=== PATIENT | male | born 1955 | race Caucasian/White ===

== ENCOUNTER 2018-11-26 08:19 | Day surgery (SDC) | payer MEDICARE, BC ==
--- NOTE | 2018-11-26 08:56 | EDM.PDOC ---
ED HPI GENERAL MEDICAL PROBLEM - General Chief Complaint: General Stated Complaint: HERNIA Time Seen by Provider: 11/26/18 08:40 Source of Information: Reports: Patient History Limitations: Reports: No Limitations - History of Present Illness INITIAL COMMENTS - FREE TEXT/NARRATIVE: 63-year-old male with a chronic asymptomatic umbilical hernia has become incarcerated and painful over the past 12 hours. He is otherwise healthy, his blood pressure is high currently but he says it tends to get high when he is upset during pain. 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 No other complaints or issues. Onset: Sudden Duration: Hour(s): (12 hours ago) Location: Reports: Abdomen Worsens with: Reports: Other (Pushing on the hernia causes discomfort) Associated Symptoms: Denies: Nausea/Vomiting Right Lower Groin Pain Score (Numeric/FACES): 6 - Related Data Allergies Allergy/AdvReac Type Severity Reaction Status Date / Time No Known Allergies Allergy Verified 11/26/18 08:50 Home Meds: Home Meds NK [No Known Home Meds] 11/26/18 [History] ED ROS GENERAL - Review of Systems Review Of Systems: See Below Constitutional: Denies: Fever, Chills HEENT: Reports: No Symptoms Respiratory: Denies: Shortness of Breath Cardiovascular: Denies: Chest Pain GI/Abdominal: Reports: Abdominal Pain. Denies: Constipation, Diarrhea : Reports: No Symptoms Skin: Denies: Bruising Neurological: Reports: No Symptoms ED EXAM, GENERAL - Physical Exam Exam: See Below Exam Limited By: No Limitations General Appearance: Alert, No Apparent Distress (Looks uncomfortable but not distressed) Eye Exam: Bilateral Eye: Normal Inspection Head: Atraumatic Respiratory/Chest: No Respiratory Distress, Lungs Clear Cardiovascular: Regular Rate, Rhythm GI/Abdominal: Soft, Other (There is an obvious fairly large umbilical hernia which is nonreducible. It is tender to palpation) Extremities: No: Pedal Edema Neurological: Alert, Oriented Psychiatric: Normal Affect, Normal Mood Skin Exam: Warm, Dry Course - Vital Signs Last Recorded V/S: Last Vital Signs Temp 96.1 F 11/26/18 08:50 Pulse 74 11/26/18 10:35 Resp 16 11/26/18 10:01 BP 174/93 H 11/26/18 10:35 Pulse Ox 98 11/26/18 10:35 - Orders/Labs/Meds Orders: Active Orders 24 hr Category Date Time Status Admission Status [Patient Status] [ADT] Routine ADT 11/26/18 09:25 Active Sodium Chloride 0.9% [Normal Saline] 1,000 ml Med 11/26/18 09:00 Active IV ASDIRECTED Medication Orders Sodium Chloride (Normal Saline) 1,000 mls @ 200 mls/hr IV ASDIRECTED PARISH Last Admin: 11/26/18 10:00 Dose: 200 mls/hr Labs: Laboratory Tests 11/26/18 11/26/18 Range/Units 09:11 09:11 WBC 6.6 (4.5-11.0) K/uL RBC 4.87 (4.30-5.90) M/uL Hgb 15.4 H (12.0-15.0) g/dL Hct 46.7 (40.0-54.0) % MCV 96 (80-98) fL MCH 32 H (27-31) pg MCHC 33 (32-36) % Plt Count 188 (150-400) K/uL Neut % (Auto) 71 H (36-66) % Lymph % (Auto) 20 L (24-44) % [place] % (Auto) 7 H (2-6) % Eos % (Auto) 1 L (2-4) % Baso % (Auto) 0 (0-1) % Sodium 137 L (140-148) mmol/L Potassium 4.5 (3.6-5.2) mmol/L Chloride 100 (100-108) mmol/L Carbon Dioxide 27 (21-32) mmol/L Anion Gap 14.5 H (5.0-14.0) mmol/L BUN 17 (7-18) mg/dL Creatinine 1.1 (0.8-1.3) mg/dL Est Cr Clr Drug Dosing 66.95 mL/min Estimated GFR (MDRD) > 60 (>60) Glucose 139 H (74-106) mg/dL Calcium 9.1 (8.5-10.1) mg/dL Meds: Medications Generic Name Dose Route Start Last Admin Trade Name Freq PRN Reason Stop Dose Admin Sodium Chloride 1,000 mls @ 200 mls/hr 11/26/18 09:00 11/26/18 10:00 Normal Saline IV 200 mls/hr ASDIRECTED PARISH Administration Discontinued Medications Generic Name Dose Route Start Last Admin Trade Name Jeanette PRN Reason Stop Dose Admin Bupivacaine HCl Confirm 11/26/18 09:41 Marcaine 0.5% Administered 11/26/18 09:42 Dose 50 ml .ROUTE .STK-MED ONE Cefazolin Sodium Confirm 11/26/18 11:05 Ancef Administered 11/26/18 11:06 Dose 2 gm .ROUTE .STK-MED ONE Fentanyl Confirm 11/26/18 11:04 Sublimaze Administered 11/26/18 11:05 Dose 100 mcg .ROUTE .STK-MED ONE Sodium Chloride Confirm 11/26/18 11:06 Normal Saline Administered 11/26/18 11:07 Dose 20 mls @ as directed .ROUTE .STK-MED ONE Lidocaine/Epinephrine Confirm 11/26/18 09:41 Xylocaine 1% With Epinephrine 1:100,000 Administered 11/26/18 09:42 Dose 50 ml .ROUTE .STK-MED ONE Midazolam HCl Confirm 11/26/18 11:04 Versed 1 Mg/Ml Administered 11/26/18 11:05 Dose 2 mg .ROUTE .STK-MED ONE Midazolam HCl Confirm 11/26/18 11:19 Versed 1 Mg/Ml Administered 11/26/18 11:20 Dose 2 mg .ROUTE .STK-MED ONE Propofol Confirm 11/26/18 11:03 Diprivan 20 Ml Administered 11/26/18 11:04 Dose 200 mg .ROUTE .STK-MED ONE Propofol Confirm 11/26/18 11:23 Diprivan 20 Ml Administered 11/26/18 11:24 Dose 200 mg .ROUTE .STK-MED ONE Propofol Confirm 11/26/18 11:35 Diprivan 20 Ml Administered 11/26/18 11:36 Dose 200 mg .ROUTE .STK-MED ONE - Re-Assessments/Exams Free Text/Narrative Re-Assessment/Exam: 11/26/18 09:29 CBC and BMP were obtained, IV normal saline started and Dr. Singh from surgical services consult. Departure - Departure Time of Disposition: 11:08 Disposition: Admitted As Inpatient 64 Clinical Impression: Incarcerated umbilical hernia - Discharge Information - My Orders Last 24 Hours: My Active Orders 11/26/18 09:00 Sodium Chloride 0.9% [Normal Saline] 1,000 ml IV ASDIRECTED 11/26/18 09:25 Admission Status [Patient Status] [ADT] Routine - Assessment/Plan Last 24 Hours: My Active Orders 11/26/18 09:00 Sodium Chloride 0.9% [Normal Saline] 1,000 ml IV ASDIRECTED 11/26/18 09:25 Admission Status [Patient Status] [ADT] Routine
[2018-11-26] MEDS ORDERED: Sodium Chloride 0.9% 1,000 ML IV SCH (09:00)
[2018-11-26] MEDS ORDERED: Bupivacaine 0.5% 50 ML MDV ONE (09:41)
[2018-11-26] MEDS ORDERED: Lidocaine 1% with EPINEPHrine 1:100,000 50 ML MDV ONE (09:41)
[2018-11-26] MEDS ORDERED: Propofol 200 MG/20 ML SDV ONE ×3 (11:03→11:35)
[2018-11-26] MEDS ORDERED: Midazolam 1 MG/ML 2 ML SDV ONE ×2 (11:04→11:19)
[2018-11-26] MEDS ORDERED: fentaNYL 100 MCG/2 ML SDV ONE (11:04)
[2018-11-26] MEDS ORDERED: ceFAZolin 1 GM Vial ONE (11:05)
[2018-11-26] MEDS ORDERED: Sodium Chloride 0.9% 20 ML ONE (11:06)
[2018-11-26] MEDS ORDERED: Acetaminophen/HYDROcodone 325-5 MG Tab PO PRN (13:30)
--- NOTE | 2018-11-27 08:09 | OR ---
DATE OF PROCEDURE: 11/26/2018 PREOPERATIVE DIAGNOSIS: Umbilical hernia. POSTOPERATIVE DIAGNOSIS: Umbilical hernia. PROCEDURE: Repair of umbilical hernia with an 8 cm in diameter Ventralex mesh patch with straps. SURGEON: Seb Singh MD ANESTHESIA: IV anesthesia with monitored anesthesia care. INDICATION: This 63-year-old white male says he has had an umbilical hernia, which he has always been able to reduce. He has had this for a long time. However, this morning, it protruded out, became incarcerated, and he was unable to reduce it. It was uncomfortable. He had no symptoms of bowel involvement. He presented to the emergency room. He was found to have an incarcerated umbilical hernia. I counseled him for repair of this with mesh, including risks and alternatives, and he gave his informed consent to proceed. Between initially seeing him and taking him to the OR, he was able to reduce the hernia himself. DESCRIPTION OF PROCEDURE: After adequate IV anesthesia was obtained, the patient's abdomen was prepped and draped in the usual sterile fashion. Time-out was held. Lidocaine 1% with epinephrine in a 50:50 mix with 0.5% Marcaine was infiltrated about the umbilicus. An infraumbilical semicircular incision was made. The umbilical hernia sac was dissected free from the overlying skin. The sac was excised and sent to pathology. Hemostasis was obtained with electrocautery. The defect was large enough to take an 8 cm Ventralex mesh patch with straps. We obtained the mesh and placed it down underneath the fascia. The straps were elevated up, bringing the mesh nicely against the posterior aspect of the anterior abdominal wall. The straps were cut to appropriate length and anchored to the anterior fascia with horizontal mattress stitches of 2-0 Vicryl. 2-0 Vicryl was then used to close the hernia defect over the mesh with a running stitch. This stitch was then used to anchor the overlying skin to the underlying fascia. The incision was irrigated and dried. 4-0 Vicryl using a subcuticular stitch was placed to approximate the skin. Dermabond was applied. The patient tolerated the procedure well and was brought to the recovery room in a good condition. Seb Singh MD /[id number]
== END 2018-11-26 14:03 | disposition home or self-care (01) ==
LOC: JP.ED 08:19 → JP.SDS 09:31
PROVIDERS: ATTEND Surgery
DX: K42.0 Umbilical hernia with obstruction, without gangrene (principal)
CPT/HCPCS: 36415; 49587; 80048; 85025; 88302; 99284; A9270; C1781; J0690; J2250; J2704; J3010; J3490; J7030

== ENCOUNTER 2021-03-15 00:16 | Emergency (ER) | payer MEDICARE, BC ==
[2021-03-15] MEDS ORDERED: Sodium Chloride 0.9% 10 ML Syringe FLUSH PRN (00:43)
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
[2021-03-15] MEDS ORDERED: Labetalol 20 MG/4 ML Syringe IVPUSH ONE (01:00)
[2021-03-15] MEDS ORDERED: LORazepam 2 MG/ML SDV IVPUSH ONE ×2 (01:19→03:26)
[2021-03-15] MEDS ORDERED: Lactated Ringers 1,000 ML IV ONE (02:03)
[2021-03-15] MEDS ORDERED: Potassium Chloride 20 MEQ in Premix Bag 1 BAG IV ONE (02:03)
[2021-03-15] MEDS ORDERED: Potassium Chloride 20 MEQ Tab.ER PO ONE (02:03)
--- NOTE | 2021-03-15 04:04 | CRLCT ---
For Patients: As a result of the Century Cures Act, medical imaging exams and procedure reports are released immediately into your electronic medical record. You may view this report before your referring provider. If you have questions, please contact your health care provider. INDICATION: Confusion COMPARISON: None available. TECHNIQUE: CT examination of the head was performed with 2 and 3 mm thick axial and 2 millimeter thick sagittal and coronal sections without intravenous contrast. Images were obtained from the vertex of the skull through the skull base, and I examined the images with the brain and bone windows. Please note that all CT scans at this facility use dose modulation, iterative reconstruction, and/or weight-based dosing when appropriate to reduce radiation dose to as low as reasonably achievable. FINDINGS: : The brain is normal in appearance for the patient`s age on today`s study, with no sign of mass lesion, mass effect, hemorrhage, or edema. There is mild dilatation of the ventricles and sulci representing mild, age-appropriate atrophy. The visualized portions of the orbits are normal in appearance. The visualized portions of the paranasal sinuses and mastoids are clear. The osseous structures are normal in their appearance with no sign of abnormality in the skull base or calvarium. IMPRESSION: Normal noncontrast CT of the head for the patient`s age. Mild, age-appropriate atrophy. Please note that all CT scans at this facility use dose modulation, iterative reconstruction, and/or weight-based dosing when appropriate to reduce radiation dose to as low as reasonably achievable. Dictated by Mark Thakkar MD @ 03/15/2021 4:02:[address] Mark Thakkar @ Mar 15 2021 4:02AM
[2021-03-15] MEDS: LORazepam 2 MG/ML SDV IVPUSH PRN ×2 (05:00→05:40)
[2021-03-15] MEDS ORDERED: LORazepam 2 MG/ML SDV IVPUSH PRN ×2 (05:09→05:12)
--- NOTE | 2021-03-15 09:49 | CR ---
CHEST: 2 view CLINICAL HISTORY:Tachycardia COMPARISON:None FINDINGS: The heart is mildly enlarged. Pulmonary vascularity is normal. No infiltrate effusion or pneumothorax seen. There are atherosclerotic changes in the aorta. Impression: Cardiomegaly No acute cardiopulmonary process .
== END 2021-03-15 12:30 ==
LOC: JP.ED 00:16
DX: F20.9 Schizophrenia, unspecified (principal); R00.0 Tachycardia, unspecified; E66.9 Obesity, unspecified; Z68.36 Body mass index [BMI] 36.0-36.9, adult; Z20.822 Contact with and (suspected) exposure to COVID-19
CPT/HCPCS: 36415; 70450; 71046; 80053; 80305; 80307; 81001; 83605; 84145; 84484; 85025; 86140; 93005; 96365; 96366; 96375; 96376; 99285; A9270; J2060; J3480; J3490; J7120; U0002